=== PATIENT | male | born 1995 | race Caucasian/White ===

== ENCOUNTER 2017-12-27 12:39 | Emergency (ER) | payer BC ==
[~2017-12-27] VITALS: Ht 177.8 cm; Wt 68.0 kg
[2017-12-27 12:42] VITALS: BP 142/81; PULSE 82; RESP 22; TEMP 98.9; O2SAT 100
[2017-12-27] MEDS ORDERED: SODIUM CHLOR 0.9% 1000 ML INJ 1,000 ML IV SCH (12:47)
--- NOTE | 2017-12-27 12:55 | PD ---
HPI Chief Complaint: Chest Pain Time Seen by Provider: 12:46 Travel History International Travel<30 days: No Contact w/Intl Traveler<30days: No Traveled to known affect area: No History of Present Illness HPI 22-year-old male with no significant medical history presents emergency department for evaluation of acute onset epigastric pain while sitting at breakfast this morning. Pain is severe, sharp, stabbing. Radiates mildly to the left. Denies any cardiac history. Denies any nausea vomiting. No episodes of diaphoresis. No shortness of breath or lightheaded sensation. He has had no abdominal surgeries. No recent illnesses. Patient has been drinking a lot more alcohol than usual as he is on spring. He did have multiple drinks last evening. He has no other symptoms to report. PFS Past Medical History Medical History: Denies Significant Hx Diminished Hearing: No Tetanus Vaccination: < 5 Years Influenza Vaccination: No Past Surgical History Surgical History: No Previous Surgery Social History Alcohol Use: No Tobacco Use: No Substance Use: No Allergies-Medications (Allergen,Severity, Reaction): Coded Allergies: No Known Allergies (Unverified , 12/27/17) Reported Meds & Prescriptions Reported Meds & Active Scripts Active No Active Prescriptions or Reported Medications Review of Systems Except as stated in HPI: all other systems reviewed are Neg Physical Exam Narrative GENERAL: Well-nourished male patient, in mild distress secondary to pain SKIN: Focused skin assessment warm/dry. HEAD: Atraumatic. Normocephalic. EYES: Pupils equal and round. No scleral icterus. No injection or drainage. ENT: No nasal bleeding or discharge. Mucous membranes pink and moist. NECK: Trachea midline. No JVD. CARDIOVASCULAR: Regular rate and rhythm. No murmur appreciated. RESPIRATORY: No accessory muscle use. Clear to auscultation. Breath sounds equal bilaterally. GASTROINTESTINAL: Abdomen soft, nondistended. Epigastric left upper quadrant tenderness to deep palpation. Hepatic and splenic margins not palpable. MUSCULOSKELETAL: No obvious deformities. No clubbing. No cyanosis. No edema. NEUROLOGICAL: Awake and alert. No obvious cranial nerve deficits. Motor grossly within normal limits. Normal speech. PSYCHIATRIC: Appropriate mood and affect; insight and judgment normal. Data Data Last Documented VS Vital Signs Date Time Temp Pulse Resp B/P (MAP) Pulse Ox O2 Delivery O2 Flow Rate FiO2 12/27/17 13:05 16 100 Room Air 12/27/17 13:05 81 125/70 (88) 12/27/17 12:42 98.9 Orders Orders Complete Blood Count With Diff (12/27/17 12:47) Comprehensive Metabolic Panel (12/27/17 12:47) Lipase (12/27/17 12:47) Iv Access Insert/Monitor (12/27/17 12:47) Ecg Monitoring (12/27/17 12:47) Oximetry (12/27/17 12:47) Ondansetron Inj (Zofran Inj) (12/27/17 13:00) Sodium Chlor 0.9% 1000 Ml Inj (Ns 1000 M (12/27/17 12:47) Sodium Chloride 0.9% Flush (Ns Flush) (12/27/17 13:00) Electrocardiogram (12/27/17 12:47) Chest, Single Ap (12/27/17 12:47) Ketorolac Inj (Toradol Inj) (12/27/17 13:00) Al-Mag Hy-Si 40-40-4 Mg/Ml Liq (Mag-Al P (12/27/17 13:00) Lidocaine 2% Viscous (Xylocaine 2% Visco (12/27/17 13:00) Troponin I (12/27/17 12:47) Ckmb (Isoenzyme) Profile (12/27/17 12:47) CKMB (12/27/17 12:42) CKMB% (12/27/17 12:42) Labs Laboratory Tests Test 12/27/17 12:42 White Blood Count 9.2 TH/MM3 Red Blood Count 5.10 MIL/MM3 Hemoglobin 15.4 GM/DL Hematocrit 44.8 % Mean Corpuscular Volume 87.8 FL Mean Corpuscular Hemoglobin 30.1 PG Mean Corpuscular Hemoglobin Concent 34.3 % Red Cell Distribution Width 12.9 % Platelet Count 268 TH/MM3 Mean Platelet Volume 7.9 FL Neutrophils (%) (Auto) 59.0 % Lymphocytes (%) (Auto) 31.5 % Monocytes (%) (Auto) 7.3 % Eosinophils (%) (Auto) 1.5 % Basophils (%) (Auto) 0.7 % Neutrophils # (Auto) 5.4 TH/MM3 Lymphocytes # (Auto) 2.9 TH/MM3 Monocytes # (Auto) 0.7 TH/MM3 Eosinophils # (Auto) 0.1 TH/MM3 Basophils # (Auto) 0.1 TH/MM3 CBC Comment DIFF FINAL Differential Comment Blood Urea Nitrogen 8 MG/DL Creatinine 0.84 MG/DL Random Glucose 95 MG/DL Total Protein 7.8 GM/DL Albumin 4.1 GM/DL Calcium Level 9.0 MG/DL Alkaline Phosphatase 93 U/L Aspartate Amino Transf (AST/SGOT) 38 U/L Alanine Aminotransferase (ALT/SGPT) 36 U/L Total Bilirubin 0.4 MG/DL Sodium Level 141 MEQ/L Potassium Level 4.0 MEQ/L Chloride Level 107 MEQ/L Carbon Dioxide Level 24.7 MEQ/L Anion Gap 9 MEQ/L Estimat Glomerular Filtration Rate 116 ML/MIN Total Creatine Kinase 160 U/L Creatine Kinase MB 1.1 NG/ML Troponin I LESS THAN 0.02 NG/ML Lipase 461 U/L MDM Medical Decision Making Medical Screen Exam Complete: Yes Emergency Medical Condition: Yes Medical Record Reviewed: Yes Differential Diagnosis PUD versus pancreatitis versus cholecystitis versus indigestion versus pleuritic pain versus chest wall pain Narrative Course 22-year-old male presents to the emergency department for evaluation of epigastric pain, acute onset this morning. Patient has epigastric left upper quadrant tenderness. He has been drinking more alcohol than he usually does as of late. He has no cardiac history. This is unlikely cardiac in etiology. Patient is given pain control and GI cocktail. Upon reassessment, he verbalizes marked improvement in his symptoms. Laboratory Tests Test 12/27/17 12:42 White Blood Count 9.2 TH/MM3 Red Blood Count 5.10 MIL/MM3 Hemoglobin 15.4 GM/DL Hematocrit 44.8 % Mean Corpuscular Volume 87.8 FL Mean Corpuscular Hemoglobin 30.1 PG Mean Corpuscular Hemoglobin Concent 34.3 % Red Cell Distribution Width 12.9 % Platelet Count 268 TH/MM3 Mean Platelet Volume 7.9 FL Neutrophils (%) (Auto) 59.0 % Lymphocytes (%) (Auto) 31.5 % Monocytes (%) (Auto) 7.3 % Eosinophils (%) (Auto) 1.5 % Basophils (%) (Auto) 0.7 % Neutrophils # (Auto) 5.4 TH/MM3 Lymphocytes # (Auto) 2.9 TH/MM3 Monocytes # (Auto) 0.7 TH/MM3 Eosinophils # (Auto) 0.1 TH/MM3 Basophils # (Auto) 0.1 TH/MM3 CBC Comment DIFF FINAL Differential Comment Blood Urea Nitrogen 8 MG/DL Creatinine 0.84 MG/DL Random Glucose 95 MG/DL Total Protein 7.8 GM/DL Albumin 4.1 GM/DL Calcium Level 9.0 MG/DL Alkaline Phosphatase 93 U/L Aspartate Amino Transf (AST/SGOT) 38 U/L Alanine Aminotransferase (ALT/SGPT) 36 U/L Total Bilirubin 0.4 MG/DL Sodium Level 141 MEQ/L Potassium Level 4.0 MEQ/L Chloride Level 107 MEQ/L Carbon Dioxide Level 24.7 MEQ/L Anion Gap 9 MEQ/L Estimat Glomerular Filtration Rate 116 ML/MIN Total Creatine Kinase 160 U/L Creatine Kinase MB 1.1 NG/ML Troponin I LESS THAN 0.02 NG/ML Lipase 461 U/L Findings are discussed with the patient. Did discuss his lipase being slightly elevated. I encouraged him to stick with a clear liquid diet and advance as tolerated. I have advised him to avoid alcohol and reminded him it is illegal. He will return immediately with any acute worsening symptoms. Diagnosis Primary Impression: Epigastric abdominal pain Additional Impression: Elevated lipase Referrals: Primary Care Physician Patient Instructions: General Instructions, Pancreatitis (ED) Additional Instructions: Clear liquid diet Avoid fatty foods Follow-up with a primary care provider Avoid alcohol use Return immediately with any acute worsening symptoms Med/Other Pt SpecificInfo: Prescription(s) given Scripts Omeprazole (Omeprazole) 40 Mg Cap 40 MG PO DAILY for 14 Days, #14 CAP 0 Refills Prov: Fatoumata Oswald 12/27/17 Disposition: 01 DISCHARGE HOME Condition: Stable Fatoumata Oswald Dec 27, 2017 12:55
[2017-12-27] MEDS ORDERED: SODIUM CHLORIDE 0.9% FLUSH 10 ML FLUSH IV FLUSH PRN (13:00)
[2017-12-27] MEDS ORDERED: ALUMINUM/MAGNESIUM/SIMETH 30 ML CUP PO ONE (13:00)
[2017-12-27] MEDS ORDERED: LIDOCAINE VISCOUS 2% SOLN 15 ML UDC PO ONE (13:00)
[2017-12-27] MEDS ORDERED: KETOROLAC TROMETHAMINE 30 MG/ML (IVP) VIAL IVP ONE (13:00)
[2017-12-27] MEDS ORDERED: ONDANSETRON HCL 4 MG/2 ML VIAL IVP ONE (13:00)
[2017-12-27 13:05] VITALS: BP 125/70; PULSE 81; RESP 16; O2SAT 100
--- NOTE | 2017-12-27 13:15 | RADRPT ---
EXAM DATE/TIME: 12/27/2017 12:54 [facility] COMPARISON: No previous studies available for comparison. INDICATIONS : Evaluate for free air MEDICAL HISTORY : None. SURGICAL HISTORY : None. ENCOUNTER: Initial ACUITY: 1 day PAIN SCORE: 0/10 LOCATION: Bilateral chest FINDINGS: A single view of the chest demonstrates the lungs to be symmetrically aerated without evidence of mas s, infiltrate or effusion. The cardiomediastinal contours are unremarkable. Osseous structures are intact. CONCLUSION: Normal examination. Ashanti Lozano MD on December 27, 2017 at 13:12 Board Certified Radiologist. This report was verified electronically.
[2017-12-27 13:18] LABS: AUTOMATED NEUTROPHIL # 5.4 TH/MM3 (1.8-7.7); BASOPHIL # 0.1 TH/MM3 (0-0.2); BASOPHIL % 0.7 % (0.0-2.0); EOSINOPHIL # 0.1 TH/MM3 (0-0.4); EOSINOPHIL % 1.5 % (0.0-4.0); HEMATOCRIT 44.8 % (39.0-51.0); HEMOGLOBIN 15.4 GM/DL (13.0-17.0); LYMPH % 31.5 % (9.0-44.0); LYMPHOCYTE # 2.9 TH/MM3 (1.0-4.8); MEAN CELL VOLUME 87.8 FL (80.0-100.0); MEAN CORPUSCULAR HEMOGLOBIN 30.1 PG (27.0-34.0); MEAN CORPUSCULAR HGB CONC 34.3 % (32.0-36.0); MEAN PLATELET VOLUME 7.9 FL (7.0-11.0); MONO % 7.3 % (0.0-8.0); MONOCYTE # 0.7 TH/MM3 (0-0.9); PLATELET COUNT 268 TH/MM3 (150-450); RED CELL DISTRIBUTION WIDTH 12.9 % (11.6-17.2); WHITE BLOOD COUNT 9.2 TH/MM3 (4.0-11.0)
[2017-12-27 13:47] LABS: ALKALINE PHOSPHATASE 93 U/L (45-117); ALT (GPT) 36 U/L (9-52); TOTAL BILIRUBIN ADULT 0.4 MG/DL (0.2-1.0); TOTAL PROTEIN 7.8 GM/DL (6.4-8.2); TROPONIN I LESS THAN 0.02 NG/ML (0.02-0.05)
[2017-12-27 13:53] LABS: ALBUMIN 4.1 GM/DL (3.4-5.0); AST (GOT) 38 U/L (15-39); BICARBONATE 24.7 MEQ/L (21.0-32.0); BLOOD UREA NITROGEN 8 MG/DL (7-18); CHLORIDE 107 MEQ/L (98-107); CREATININE 0.84 MG/DL (0.60-1.30); GLOMERULAR FILTRATION RATE 116 ML/MIN (>89); GLUCOSE,RANDOM 95 MG/DL (74-106); SODIUM (NA) 141 MEQ/L (136-145)
[2017-12-27] MEDS ORDERED: OMEP40CA2 PO (14:54)
--- NOTE | 2017-12-28 11:25 | EKG ---
Date Performed: 12/27/2017 Time Performed: 12:49:32 PTAGE: 22 years EKG: Sinus rhythm WITH SINUS ARRHYTHMIA RIGHT BUNDLE BRANCH BLOCK ABNORMAL ECG NO PREVIOUS TRACING DOCTOR: Melva De Luna Interpretating Date/Time 12/28/2017 11:23:44
== END 2017-12-27 15:23 | disposition home or self-care (01) ==
LOC: NEPC 12:39
DX: R10.13 Epigastric pain (principal); R74.8 Abnormal levels of other serum enzymes
CPT/HCPCS: 71045; 80053; 82550; 82552; 83690; 84484; 85025; 93005; 96374; 96375; 99285; J1885; J2405; J7030